=== PATIENT | male | born 1965 | race Caucasian/White ===

== ENCOUNTER → 2020-04-24 | Outpatient (CLI) | payer OTHER ==
--- NOTE | 2020-04-24 16:03 | RAD ---
EXAM: Right hand, 2 views. HISTORY: Pain. COMPARISON: None. FINDINGS: 2 views the right hand are obtained. There is no acute fracture, dislocation or subluxation . There is a corticated ossicle likely due to a chronic fragmented spur adjacent to the first interph alangeal joint. There is no foreign body. IMPRESSION: No acute osseous finding. Electronically signed by: Maricel Cardenas MD (04/24/2020 4:00 PM) [id number]
== END ==
LOC: RAD 13:12
PROVIDERS: ATTEND Surgery
DX: M79.641 Pain in right hand (principal)
CPT/HCPCS: 73120